=== PATIENT | female | born 1955 | race Caucasian/White ===

== ENCOUNTER → 2017-08-13 | Outpatient (CLI) | payer BC | END | disposition home or self-care (01) | DX: M25.561 Pain in right knee (principal); M25.661 Stiffness of right knee, not elsewhere classified; R26.2 Difficulty in walking, not elsewhere classified; M62.81 Muscle weakness (generalized); M17.11 Unilateral primary osteoarthritis, right knee; Z74.1 Need for assistance with personal care | CPT/HCPCS: 97161 GP; 97165 GO; 97530 GP; 97535 GO ==

== ENCOUNTER 2017-09-09 22:02 | Inpatient (IN) | payer BC ==
[~2017-09-09] VITALS: Ht 160 cm; Wt 133.3 kg
[~2017-09-09 22:02] MED LIST: ADULT ASPIRIN R81 MG PO; FEOSOL325 MG PO; FLONASE16 G1 BOTH NARES; LEXAPRO10 MG PO; PRILOSEC OTC20 MG PO; SYNTHROID150 MCG PO; VICODIN ES 7.51 EAC1 PO; VOLTAREN75 MG PO; ZYRTEC10 M3 PO
[2017-09-10 06:17] VITALS: BP 138/67
[2017-09-10 10:07] LABS: HEMATOCRIT 39.6 % (36.0-46.0); HEMOGLOBIN 12.9 G/DL (11.9-15.5); MCH 29.5 PG (29.0-34.0); MCHC 32.6 G/DL (30.0-36.0); MCV 90.4 FL (83-99); PLATELET COUNT 218 K/uL (156-360); RBC DIS.WIDTH-CV 12.8 % (11.8-14.6); RBC DIS.WIDTH-SD 42.3 % (39-53); RED BLOOD COUNT 4.38 M/uL (3.80-5.20); WHITE BLOOD COUNT 10.3 K/uL (4.1-10.2)
[2017-09-10 11:25] VITALS: BP 121/56
[2017-09-10 16:16] VITALS: BP 134/67
[2017-09-10 19:51] VITALS: BP 120/57
[2017-09-11 00:25] VITALS: BP 119/55; BP 130/71
[2017-09-11 04:30] VITALS: BP 115/53
[2017-09-11 05:51] LABS: HEMATOCRIT 35.1 % (36.0-46.0); HEMOGLOBIN 11.3 G/DL (11.9-15.5); MCV 90.7 FL (83-99)
[2017-09-11 06:14] LABS: CHLORIDE 101 MEQ/L (99-109); CREATININE 0.9 MG/DL (0.6-1.3); GFR ESTIMATE (CALCULATED) > 59 mL/min/; GLUCOSE 129 mg/dL (70-99); POTASSIUM 4.6 MEQ/L (3.7-5.4); SODIUM 134 MEQ/L (136-147); UREA NITROGEN (BUN) 11 mg/dL (9-23)
[2017-09-11 08:04] VITALS: BP 118/58
[2017-09-11 12:00] VITALS: BP 134/68
[2017-09-11 15:27] VITALS: BP 139/63
[2017-09-11 19:42] VITALS: BP 128/61
[2017-09-12 00:12] VITALS: BP 127/62
[2017-09-12 04:15] VITALS: BP 129/66
[2017-09-12 05:49] LABS: HEMATOCRIT 32.7 % (36.0-46.0); HEMOGLOBIN 10.7 G/DL (11.9-15.5); MCV 90.8 FL (83-99)
[2017-09-12 08:12] VITALS: BP 131/61
[2017-09-12] MEDS ORDERED: CELECOXIB200 MG PO (08:32)
[2017-09-12] MEDS ORDERED: SENNA PLUS TAB1 EACH PO (08:32)
[2017-09-12] MEDS ORDERED: OXYCONTIN10 MG PO (08:32)
[2017-09-12] MEDS ORDERED: ENDOCET 5-3251 EACH PO (08:32)
[2017-09-12] MEDS ORDERED: LOVENOX40 MG/0.4 SC (08:32)
[2017-09-12 12:13] VITALS: BP 136/63
== END 2017-09-12 15:16 | DRG 470 ==
LOC: ENRESERV 22:02 → 2SOUTH 09-10 05:39 → 3WEST 09-10 11:01 → 2SOUTH 09-10 12:14 → 3WEST 09-12 15:16
PROVIDERS: Orthopaedic Surgery
PROC: 0SRC0J9 Replacement of Right Knee Joint with Synthetic Substitute, Cemented, Open Approach (ICD-10-PCS; principal; 2017-09-10)
DX: M17.11 Unilateral primary osteoarthritis, right knee (principal); E03.9 Hypothyroidism, unspecified; M48.00 Spinal stenosis, site unspecified; K21.9 Gastro-esophageal reflux disease without esophagitis; F41.9 Anxiety disorder, unspecified; Z68.43 Body mass index [BMI] 50.0-59.9, adult
CPT/HCPCS: 73560; 80048; 85014; 85018; 85027; 94799; C1713; J0330; J0690; J1100; J1170; J1650; J1885; J2250; J2405; J2710; J2795; J3010; J7030; J7050

== ENCOUNTER → 2018-03-31 | Outpatient (CLI) | payer BC ==
[~2018-03-31] MED LIST changes: +CELECOXIB200 MG PO; +ENDOCET 5-3251 EACH PO; +LOVENOX40 MG/0.4 SC; +OXYCONTIN10 MG PO; +SENNA PLUS TAB1 EACH PO
== END | disposition home or self-care (01) ==
LOC: NUC 07:55
DX: M47.897 Other spondylosis, lumbosacral region (principal); M47.816 Spondylosis without myelopathy or radiculopathy, lumbar region; M53.3 Sacrococcygeal disorders, not elsewhere classified; G89.29 Other chronic pain; E66.9 Obesity, unspecified; Z96.659 Presence of unspecified artificial knee joint
CPT/HCPCS: 78315; A9503